=== PATIENT | female | born 1975 | race Asian ===

== ENCOUNTER → 2018-01-11 | Day surgery (SDC) | payer OTHER ==
--- NOTE | 2018-01-12 16:07 | PATH ---
Cytology Non-Gynecological Report Patient Name: SHANTE BOWEN [facility]. Rec. #: [id number] /Age/Gender: 1975 (Age: 42) / F Account: [id number] Location: [facility] Taken: 01/11/2018 Received: 01/11/2018 Reported: 01/12/2018 Physicians: Nikki Monroe M.D. Specimen(s) Received LEFT BREAST 12-1:00 O'CLOCK FNA Clinical History Left breast cyst, 3.3 cm Final Diagnosis BREAST, LEFT, 12-1:00, FINE NEEDLE ASPIRATION: SATISFACTORY FOR EVALUATION. NEGATIVE FOR MALIGNANT CELLS. CYSTIC BREAST LESION WITH MACROPHAGES. SCATTERED MACROPHAGES IN A BACKGROUND OF PROTEINACEOUS MATERIAL. NO DUCTAL CELLS IDENTIFIED. Electronically Signed Leila Contreras M.D. Gross Description Approximately 20 cc of yellow fluid received fixed in 50% alcohol. One cytofunnel prepared and Pap stained. One cellblock prepared.
== END | disposition home or self-care (01) ==
LOC: JRADUS-SUR 09:53
PROVIDERS: ATTEND Obstetrics & Gynecology
PROC: 0H9U3ZX Drainage of Left Breast, Percutaneous Approach, Diagnostic (ICD-10-PCS; principal; 2018-01-11)
DX: N60.02 Solitary cyst of left breast (principal)
CPT/HCPCS: 76942-TC; 87899; 88173; 88305-TC